=== PATIENT | female | born 1985 | race Caucasian/White ===

== ENCOUNTER → 2018-07-15 14:57 | Outpatient (REF) | payer OTHER, SELFPAY ==
[2018-07-15 18:03] LABS: Basophils % 0.2 % (0.1-2.0); Eosinophils % 0.3 % (0.1-12.0); Hemoglobin 14.9 g/dL (12.2-16.2); Lymphocytes # 2.1 K/mm3 (0.7-4.5); Lymphocytes % 19.7 K/mm3 (10-50); Mean Corpuscular HGB Conc 32.3 g/dL (31.8-35.4); Mean Corpuscular Volume 89.6 fl (81-99); Mean Platelet Volume 9.2 fl (7.4-10.4); Monocytes # 0.3 K/mm3 (0.1-1.0); Monocytes % 2.9 % (1.7-9.3); Neutrophils # 8.3 K/mm3 (1.8-7.8); Neutrophils % 76.9 % (37.0-80.0); Platelet Count 248 K/mm3 (142-424); Red Blood Count 5.13 M/mm3 (4.20-5.40); Red Cell Distribution Width 13.1 % (11.5-17.5); White Blood Count 10.8 K/mm3 (4.8-10.8)
[2018-07-15 18:24] LABS: Alanine Aminotransferase 21 U/L (12-78); Albumin Level 4.1 gm/dL (3.4-5.0); Albumin/Globulin Ratio 1.3 (1.1-1.8); Alkaline Phosphatase 67 U/L (46-116); Anion Gap 14.4 mEq/L (5-15); Aspartate Amino Transferase 8 U/L (15-37); Bilirubin,Total 0.4 mg/dL (0.2-1.0); Blood Urea Nitrogen 7 mg/dL (7-18); Calcium 9.1 mg/dL (8.5-10.1); Carbon Dioxide 27 mmol/L (21.0-32.0); Chloride 105 mmol/L (98-107); Chol/HDL Ratio 6.4 (1-3.5); Cholesterol 235 mg/dL (140-200); Creatinine,Serum 0.69 mg/dL (0.55-1.02); Estimated Glomerular Filt Rate 99 ml/min (>60); Free T4 (Free Thyroxine) 0.85 ng/dl (0.76-1.46); GFR (African American) 119 ML/MIN (>60); Globulin 3.2 gm/dl (1.3-3.2); Glucose 98 mg/dL (74-106); HDL Cholesterol 37 mg/dL (29-89); LDL Cholesterol 184 mg/dL (0-130); Potassium 4.4 mmoL/L (3.5-5.1); Sodium 142 mmol/L (136-145); Thyroid Stimulating Hormone 1.06 uIU/ml (0.358-3.740); Total Protein,Serum 7.3 gm/dL (6.4-8.2); Triglycerides 68 mg/dL (30-200); VLDL Cholesterol 14 mg/dL (0-40)
[2018-07-17 20:01] LABS: Vitamin D 25 Hydroxy 36.7 ng/mL (30.0-100.0)
== END ==
LOC: LAB 14:57
PROVIDERS: Visit Provider Emergency Medicine
DX: R53.83 Other fatigue (principal)
CPT/HCPCS: 80053; 80061; 82652; 84439; 84443; 85025

== ENCOUNTER → 2019-02-06 16:50 | Outpatient (CLI) | payer OTHER, SELFPAY ==
[2019-02-06 18:24] LABS: Amphetamine/Metha Screen,Urine Negative ng/mL (<1000); Barbiturates Screen,Urine Negative ng/mL (<200); Benzodiazepines Screen,Urine Negative ng/mL (<200); Cannabinoid Screen,Urine Negative ng/mL (<50); Cocaine Screen,Urine Negative ng/mL (<300); Methadone Screen,Urine Negative ng/mL (<300); Opiate Screen,Urine Positive ng/mL (<300); Phencyclidine Screen,Urine Negative ng/mL (<25)
== END ==
PROVIDERS: Visit Provider Emergency Medicine
DX: Z79.899 Other long term (current) drug therapy (principal)
CPT/HCPCS: 80305

== ENCOUNTER 2021-01-04 16:22 | Emergency (ER) | payer OTHER, SELFPAY ==
[2021-01-04 16:39] VITALS: BP 106/89; PULSE 54; RESP 16; TEMP 36.4; O2SAT 98; BMI 26.6
--- NOTE | 2021-01-04 16:45 | XR_ITS ---
PROCEDURE: XR ELBOW RT MIN 3V CLINICAL INDICATION: FALL Posttraumatic pain COMPARISON: No exams were available for comparison FINDINGS: Nondisplaced fracture involves the radial. Fracture involves the articular surface of the radial head.. There is a displaced anterior fat pad. There may also be a nondisplaced fracture of the anterior aspect of the radial neck. The joint spaces are well-preserved. No significant degenerative/arthritic changes. No erosive changes evident. Other findings:None. IMPRESSION: Nondisplaced fracture of the radial head and neck with intra-articular involvement Dictated by: Jose Howard MD 01/04/2021 17:05 Jose Howard MD in [place] 01/04/2021 17:05
--- NOTE | 2021-01-04 17:08 | HMH.EDUTC ---
[facility] [place] Clinical Impression: Radial fracture Qualifiers: Encounter type: initial encounter Radius location: head Fracture type: closed Fracture alignment: nondisplaced Laterality: right Qualified Code(s): S52.124A - Nondisplaced fracture of head of right radius, initial encounter for closed fracture Disposition: Home, Self-Care Condition on Discharge: Good Instructions: DI for Elbow Fracture, DI for Forearm Fracture, How To Perform RICE (Rest, Ice, Compress, Elevate) Additional Instructions: *RICE, Rest the extremity, Ice 15-20 minutes 3-4 times daily, Compress- wear the angel wrap as discussed as much as possible to help reduce swelling and pain, Elevate the extremity when at rest *Angel wrap/Orthoglass is for support and help control swelling, and sling to hold the arm Be sure that is not to tight but not to loose either *Elevate when resting *Ibuprofen 800mg every 8 hours as needed for pain an inflammation as you was previously prescribed. If need something more can take Tylenol in between doses of Ibuprofen to help Immediately follow up with your family doctor for new or worsening of symptoms, or no noticeable improvement over the next 3-[address] Rose office for appointment Return if needed Straight to ER if any life threatening symptoms Referrals: Luis Miguel Byers MD [Primary Care Provider] - As needed Wes Fisher MD [Staff Physician] - As needed (Call office for appointment) Time of Disposition: 17:37 Medical Decision Making - Shakeel Inquiry Pt receiving controlled substance: No Shakeel was queried for this patient: No Vital Signs: 01/04/21 16:39 Temperature 97.6 F Temperature Source Tympanic Pulse Rate [Right] 54 L Respiratory Rate 16 Blood Pressure [Right Arm] 106/89 L Blood Pressure Mean [Right Arm] 94 Blood Pressure Source [Right Arm] Automatic Cuff Blood Pressure Position [Right Arm] Sitting 02 Sat by Pulse Oximetry 98 Oxygen Delivery Method Room Air - Radiology Data #1 Image(s): Elbow Image Reviewed: Yes I have reviewed radiologist's interpretation Nondisplaced fracture of the radial head and neck with intra-articular involvement - Physician Consults Physician Consulted: Phillip Time: 17:16 Reason -: Orthopedic Eval/Care Comment/Response: Discussed patient with Dr Fisher and he advised to place in long arm splint, sling and RICE Nsaids and they would see her in the office next [place] [facility] [place] - General Stated complaint: 0221 injured R elbow Time Seen by Provider: 01/04/21 17:08 Mode of Arrival: Ambulatory Source of Information: Patient Limitations: No Limitations Description of Symptoms (Recalled from Triage Doc. by RN): PT FELL DOWN HER STAIRS THREE DAYS AGO INJURING HER RIGHT ELBOW. HER ELBOW IS RED, INFLAMMED, HOT AND PAINFUL WITH SHARP SHOOTING PAIN UP TO HER NECK. 7/10 PAIN HEENT Symptoms (Recalled from RN notes): No Resp Symptoms (Recalled from RN notes): No Skin Symptoms (Recalled from RN notes): No MS Symptoms (Recalled from RN notes): Yes (R ELBOW PAIN. ELBOW IS RED, INFLAMMED, SWOLLEN AND HOT.) Functional Status (Recalled from RN notes): NA - History of Present Illness Provider Complaint: Patient states that she had a baby about 2 weeks ago and was walking down her basement steps when she slipped and fell and landed on her right elbow about 3 days ago State that ever since she has been having Pain and swelling States that it hurts when she moves her arm - Related Data Home Medications Medication Instructions Recorded Confirmed Topiramate 50 mg PO DAILY 02/07/19 04/22/19 Previous Rx's Medication Instructions Recorded clonazepam 1 mg tablet 1 mg PO QID #120 tab 02/06/19 trazodone 100 mg tablet 100 mg PO HS #30 tab 02/06/19 Allergies Allergy/AdvReac Type Severity Reaction Status Date / Time No Known Allergies Allergy Verified 01/04/21 16:35 - Worker's Comp Is this a Worker's Comp case?: No [facility] History - Hepatitis A Screen Drug use
[2021-01-04 17:38] VITALS: BP 110/93; PULSE 60; RESP 16; TEMP 36.6
== END 2021-01-04 17:44 | disposition home or self-care (01) ==
PROVIDERS: Emergency Provider Nurse Practitioner; PCP Emergency Medicine
DX: S52.124A Nondisplaced fracture of head of right radius, initial encounter for closed fracture (principal); S52.135A Nondisplaced fracture of neck of left radius, initial encounter for closed fracture; W10.9XXA Fall (on) (from) unspecified stairs and steps, initial encounter; Y92.019 Unspecified place in single-family (private) house as the place of occurrence of the external cause; F17.210 Nicotine dependence, cigarettes, uncomplicated
CPT/HCPCS: 29105; 73080; 99202; G0463

== ENCOUNTER → 2021-01-11 09:21 | Outpatient (CLI) | payer OTHER, SELFPAY ==
--- NOTE | 2021-01-11 09:32 | XR_ITS ---
PROCEDURE: XR ELBOW RT MIN 3V CLINICAL INDICATION: right radial head fracture COMPARISON: No exams were available for comparison FINDINGS: There is a subtle essentially nondisplaced fracture of the radial head. There may be a very small posterior fat pad sign present. The supracondylar humerus and olecranon appear normal. IMPRESSION: Radial head fracture as noted Dictated by: Dr. Osmani Lawson MD 01/11/2021 10:49 Dr. Osmani Lawson MD in [place] 01/11/2021 10:49
== END ==
PROVIDERS: PCP Emergency Medicine; Visit Provider Orthopaedic Surgery
DX: S52.121A Displaced fracture of head of right radius, initial encounter for closed fracture (principal)
CPT/HCPCS: 73080

== ENCOUNTER 2023-06-04 16:59 | Emergency (ER) | payer OTHER, SELFPAY ==
[2023-06-04 17:01] VITALS: BP 147/86; PULSE 77; RESP 18; TEMP 36.9; O2SAT 98; BMI 27.3
--- NOTE | 2023-06-04 17:11 | XR_ITS ---
PROCEDURE INFORMATION: Exam: XR Chest Exam date and time: 06/04/2023 5:19 PM Age: 37 years old Clinical indication: Cough and shortness of breath and wheezing TECHNIQUE: Imaging protocol: Radiologic exam of the chest. Views: 2 views. COMPARISON: CR CXR2V XR chest 2V 03/24/2018 2:08 PM FINDINGS: Lungs: There is a rounded region of infiltrate in the peripheral left mid lung. The right lung is clear. Pleural spaces: Unremarkable. No pleural effusion. No pneumothorax. Heart/Mediastinum: Unremarkable. No cardiomegaly. Bones/joints: Unremarkable. IMPRESSION: Rounded infiltrate peripheral left mid lung suspicious for possible pneumonia. Recommend clinical correlation.
--- NOTE | 2023-06-04 17:15 | PC.NURSE ---
pt states at this time her throat is hurting.
--- NOTE | 2023-06-04 17:17 | PC.NURSE ---
flu and strep sent to lab.
[2023-06-04 17:20] LABS: Coronavirus 19, PCR Not Detected (NotDetected); Influenza A, PCR Not Detected (NotDetected); Influenza B, PCR Not Detected (NotDetected)
[2023-06-04 17:29] LABS: Strep Scrn Group A (Rapid) Negative (Negative)
[2023-06-04 19:39] VITALS: PULSE 88; PULSE 89
--- NOTE | 2023-06-04 19:55 | HMH.EDGENADL ---
Discharge Plan Disposition Patient Disposition: Home, Self-Care Prescriptions Prescriptions: New amoxicillin 500 mg tablet 500 mg PO BID 10 Days Qty: 20 0RF azithromycin 500 mg tablet 500 mg PO DAILY 3 Days Qty: 3 0RF albuterol sulfate 90 mcg/actuation HFA aerosol inhaler 2 inh inhalation Q6H PRN (Reason: shortness of breath or wheezing) Qty: 8.5 0RF No Action clonazepam 1 mg tablet 1 mg PO QID Qty: 120 0RF trazodone 100 mg tablet 100 mg PO HS Qty: 30 0RF topiramate 50 MG tablet 50 mg PO DAILY Referrals Follow up/Referrals: Fede Herron MD [Primary Care Provider] - See instructions Activity Restrictions/Add. Instructions Additional Instructions/Restrictions: Azithromycin once daily for 3 days. Amoxicillin twice daily for 10 days. Use probiotics if you begin to have diarrhea. If you have any other concerning signs or symptoms, return to the ER for further evaluation. You can also see your primary care provider within 1 week to establish care and ensure improvement in symptoms. Clinical Impressions Clinical Impression: Pneumonia Qualifiers: Pneumonia type: due to unspecified organism Laterality: left Lung location: upper lobe of lung Qualified Code(s): J18.9 - Pneumonia, unspecified organism RAD (reactive airway disease) Qualifiers: Asthma severity: mild Asthma persistence: intermittent Asthma complication type: with acute exacerbation Qualified Code(s): J45.21 - Mild intermittent asthma with (acute) exacerbation Discharge ED Provider: Rigoberto Solano General Adult HPI General Chief complaint: Upper Respiratory Infection Stated complaint: Cough congestion Time Seen by Provider: 06/04/23 18:32 Mode of Arrival: Ambulatory Source of Information: Patient Limitations: No Limitations Description of Symptoms (Recalled from ER Triage Doc. by RN): pt presents to ED c/o cough x 1 week and body aches. pt reports initially when symptoms started she had a fever but denies fever the past few days. History of Present Illness HPI narrative: This is a 37-year-old female with history of tobacco use, not currently smoking, migraine disorder presenting with cough and fevers. Patient states that she started coughing having fevers about 10 days prior to arrival. Had fever 1 time, but since that point, has not had any fevers that she knows of. Has been taking Excedrin Migraine, it has not been helping much. She has a cough that is nonproductive of sputum. Denies abdominal pain, vomiting, chills, diarrhea, rash, altered mental status. Because she initially felt better and is now feeling a little bit worse, she came to the ER for further evaluation. Related Data Home Medications Medication Instructions Recorded Confirmed topiramate 50 mg tablet 50 mg PO DAILY Headache 02/07/19 01/11/21 Previous Rx's Medication Instructions Recorded clonazepam 1 mg tablet 1 mg PO QID Anxiety #120 tabs 02/06/19 trazodone 100 mg tablet 100 mg PO HS sleep #30 tabs 02/06/19 albuterol sulfate 90 mcg/actuation 2 inh inhalation Q6H PRN shortness 06/04/23 aerosol inhaler of breath or wheezing #8.5 grams amoxicillin 500 mg tablet 500 mg PO BID 10 days #20 tabs 06/04/23 azithromycin 500 mg tablet 500 mg PO DAILY 3 days #3 tabs 06/04/23 Allergies Allergy/AdvReac Type Severity Reaction Status Date / Time No Known Allergies Allergy Verified 01/11/21 08:57 [facility] Disclaimer: The information contained in this section may have been updated after the patient was seen, as this information can be updated by other users. Medical History (Updated 06/04/23 @ 20:02 by Rigoberto Solano MD) Hyperlipidemia (~07/16/18) Social History Smoking Status: Current every day smoker tobacco type: cigarettes packs per day: 1 second hand exposure: Yes alcohol intake: never substance use type: denies use current occupational status: other Travel in the last 8 weeks: None caffeine: Yes ROS Obtained: Yes
[2023-06-04 20:04] VITALS: BP 134/75; PULSE 81; RESP 16; TEMP 36.9; O2SAT 98
== END 2023-06-04 20:06 | disposition home or self-care (01) ==
PROVIDERS: Emergency Provider Emergency Medicine; PCP Obstetrics & Gynecology
DX: J18.9 Pneumonia, unspecified organism (principal); J45.21 Mild intermittent asthma with (acute) exacerbation; E78.5 Hyperlipidemia, unspecified; F17.210 Nicotine dependence, cigarettes, uncomplicated
CPT/HCPCS: 71046; 87430; 87636; 96374; 99284